=== PATIENT | male | born 1975 | race Caucasian/White ===

== ENCOUNTER 2023-12-27 16:36 | Emergency (ER) | payer OTHER ==
[~2023-12-27] VITALS: Ht 175.3 cm; Wt 100.0 kg
[2023-12-27] MEDS ORDERED: ADDE20CA3 PO (17:18)
[2023-12-27] MEDS ORDERED: CIPR-249 PO (20:04)
[2023-12-27] MEDS: CIPROFLOXACIN 500MG TABLET PO ONE (20:12)
[2023-12-27] MEDS: LIDOCAINE 2% MDV 20ML VIAL SC ONE (20:12)
[2023-12-27] MEDS: BOOSTRIX VACCINE (TETANUS/DIPHTH/ACEL. PERTUSSIS) 0.5ML SYR IM ONE (20:13)
[2023-12-27 20:23] VITALS: BP 122/72; TEMP 98.6; O2SAT 98
== END 2023-12-27 20:27 | disposition home or self-care (01) ==
LOC: M ED 16:36
DX: S60.453A Superficial foreign body of left middle finger, initial encounter (principal); F17.200 Nicotine dependence, unspecified, uncomplicated; F12.10 Cannabis abuse, uncomplicated; Z23 Encounter for immunization; Z79.2 Long term (current) use of antibiotics; Z79.899 Other long term (current) drug therapy; Y92.9 Unspecified place or not applicable; Y93.89 Activity, other specified; Y99.9 Unspecified external cause status